=== PATIENT | female | born 1995 | race African-American/Black ===

== ENCOUNTER 2016-08-08 02:51 | Emergency (ER) | payer OTHER, MEDICAID ==
[~2016-08-08] VITALS: Ht 154.9 cm; Wt 60.9 kg
[~2016-08-08 02:51] MED LIST: HYDR5SYP10 PO
[2016-08-08 03:01] VITALS: BP 126/94; PULSE 100; RESP 14; TEMP 98.1; O2SAT 99
[2016-08-08 04:45] VITALS: BP 101/60; PULSE 73; RESP 16; O2SAT 99
[2016-08-08] MEDS ORDERED: SODIUM CHLOR 0.9% 1000 ML INJ 1,000 ML IV ONE (05:20)
--- NOTE | 2016-08-08 05:23 | PD ---
HPI Chief Complaint: Abdominal Pain Time Seen by Provider: 05:20 Travel History International Travel<30 days: No Contact w/Intl Traveler<30days: No Traveled to known affect area: No History of Present Illness HPI 21-year-old female presents to the emergency department for complaint of nausea vomiting and diarrhea since proxy 5 PM on the evening. Patient states symptoms began after eating all invalid solid and breadsticks. No other persons at 8 with her had this similar symptoms. No fever no chills no hematemesis no coffee -ground emesis no melena or hematochezia. Patient denies abdominal pain. Patient is presently menstruating and denies . Discomfort/pain is 0/ 10 intensity. PFSH Past Medical History Narrative Medical Ovarian cyst excision occasional alcohol use substance use nursing notes reviewed Medical History: Denies Significant Hx Diminished Hearing: No Immunizations Current: Yes Tetanus Vaccination: < 5 Years ?: Not LMP: Now : 0 Para: 0 Miscarriage: 0 : 0 Past Surgical History Gynecologic Surgery: Yes (OVARIAN CYST REMOVAL) Social History Alcohol Use: Yes (Socially ) Tobacco Use: No Substance Use: Yes (Marijuana ) Allergies-Medications (Allergen,Severity, Reaction): Coded Allergies: Medroxyprogesterone (Unverified Allergy, Mild, 08/08/16) Reported Meds & Prescriptions Reported Meds & Active Scripts Active Zofran Odt (Ondansetron Odt) 4 Mg Tab 4 Mg SL Q6HR PRN Review of Systems Except as stated in HPI: all other systems reviewed are Neg Physical Exam Narrative GENERAL: Well-developed well-nourished female in no acute distress no respiratory distress SKIN: Warm and dry. HEAD: Normocephalic. EYES: No scleral icterus. No injection or drainage. NECK: Supple, trachea midline. No JVD or lymphadenopathy. CARDIOVASCULAR: Regular rate and rhythm without murmurs, gallops, or rubs. RESPIRATORY: Breath sounds equal bilaterally. No accessory muscle use. GASTROINTESTINAL: Abdomen soft, non-tender, nondistended. MUSCULOSKELETAL: No cyanosis, or edema. BACK: Nontender without obvious deformity. No CVA tenderness. Data Data Last Documented VS Vital Signs Date Time Temp Pulse Resp B/P Pulse Ox O2 Delivery O2 Flow Rate FiO2 08/08/16 07:44 103 18 106/59 100 Room Air 08/08/16 03:01 98.1 Orders Complete Blood Count With Diff (08/08/16 05:20) Comprehensive Metabolic Panel (08/08/16 05:20) Urinalysis - C+S If Indicated (08/08/16 05:20) Lipase (08/08/16 05:20) Iv Access Insert/Monitor (08/08/16 05:20) Ecg Monitoring (08/08/16 05:20) Oximetry (08/08/16 05:20) Ondansetron Inj (Zofran Inj) (08/08/16 05:30) Sodium Chlor 0.9% 1000 Ml Inj (Ns 1000 M (08/08/16 05:20) Sodium Chloride 0.9% Flush (Ns Flush) (08/08/16 05:30) Ed Urine Pregnancytest Poc (08/08/16 05:20) Labs Laboratory Tests Test 08/08/16 08/08/16 05:30 07:09 White Blood Count 4.8 TH/MM3 Red Blood Count 4.41 MIL/MM3 Hemoglobin 12.4 GM/DL Hematocrit 37.1 % Mean Corpuscular Volume 84.2 FL Mean Corpuscular Hemoglobin 28.2 PG Mean Corpuscular Hemoglobin 33.5 % Concent Red Cell Distribution Width 13.4 % Platelet Count 244 TH/MM3 Mean Platelet Volume 7.3 FL Neutrophils (%) (Auto) 83.6 % Lymphocytes (%) (Auto) 8.1 % Monocytes (%) (Auto) 3.9 % Eosinophils (%) (Auto) 1.3 % Basophils (%) (Auto) 3.1 % Neutrophils # (Auto) 4.0 TH/MM3 Lymphocytes # (Auto) 0.4 TH/MM3 Monocytes # (Auto) 0.2 TH/MM3 Eosinophils # (Auto) 0.1 TH/MM3 Basophils # (Auto) 0.1 TH/MM3 CBC Comment DIFF FINAL Differential Comment Sodium Level 141 MEQ/L Potassium Level 3.8 MEQ/L Chloride Level 109 MEQ/L Carbon Dioxide Level 23.5 MEQ/L Anion Gap 9 MEQ/L Blood Urea Nitrogen 18 MG/DL Creatinine 0.78 MG/DL Estimat Glomerular Filtration 114 ML/MIN Rate Random Glucose 101 MG/DL Calcium Level 8.8 MG/DL Total Bilirubin 1.5 MG/DL Aspartate Amino Transf 82 U/L (AST/SGOT) Alanine Aminotransferase 122 U/L (ALT/SGPT) Alkaline Phosphatase 84 U/L Total Protein 7.8 GM/DL Albumin 3.7 GM/DL Lipase 183 U/L Urine Collection Type CLEAN CATCH Urine Color YELLOW Urine Turbidity SLIGHTY CLOUDY Urine pH 6.0 Urine Specific [place] 1.034 Urine Protein TRACE mg/dL Urine Glucose (UA) NEG mg/dL Urine Ketones 40 mg/dL Urine Occult Blood LARGE Urine Nitrite NEG Urine Bilirubin NEG Urine Leukocyte Esterase NEG Urine RBC 10-14 /hpf Urine WBC 0-2 /hpf Urine Squamous Epithelial 0-5 /hpf Cells Urine Amorphous Sediment FEW Urine Bacteria RARE /hpf Microscopic Urinalysis Comment CULT NOT INDICATED MDM Medical Decision Making Medical Screen Exam Complete: Yes Emergency Medical Condition: Yes Medical Record Reviewed: Yes Interpretation(s) poc hcg: negative Laboratory Tests Test 08/08/16 08/08/16 05:30 07:09 White Blood Count 4.8 TH/MM3 Red Blood Count 4.41 MIL/MM3 Hemoglobin 12.4 GM/DL Hematocrit 37.1 % Mean Corpuscular Volume 84.2 FL Mean Corpuscular Hemoglobin 28.2 PG Mean Corpuscular Hemoglobin 33.5 % Concent Red Cell Distribution Width 13.4 % Platelet Count 244 TH/MM3 Mean Platelet Volume 7.3 FL Neutrophils (%) (Auto) 83.6 % Lymphocytes (%) (Auto) 8.1 % Monocytes (%) (Auto) 3.9 % Eosinophils (%) (Auto) 1.3 % Basophils (%) (Auto) 3.1 % Neutrophils # (Auto) 4.0 TH/MM3 Lymphocytes # (Auto) 0.4 TH/MM3 Monocytes # (Auto) 0.2 TH/MM3 Eosinophils # (Auto) 0.1 TH/MM3 Basophils # (Auto) 0.1 TH/MM3 CBC Comment DIFF FINAL Differential Comment Sodium Level 141 MEQ/L Potassium Level 3.8 MEQ/L Chloride Level 109 MEQ/L Carbon Dioxide Level 23.5 MEQ/L Anion Gap 9 MEQ/L Blood Urea Nitrogen 18 MG/DL Creatinine 0.78 MG/DL Estimat Glomerular Filtration 114 ML/MIN Rate Random Glucose 101 MG/DL Calcium Level 8.8 MG/DL Total Bilirubin 1.5 MG/DL Aspartate Amino Transf 82 U/L (AST/SGOT) Alanine Aminotransferase 122 U/L (ALT/SGPT) Alkaline Phosphatase 84 U/L Total Protein 7.8 GM/DL Albumin 3.7 GM/DL Lipase 183 U/L Urine Collection Type CLEAN CATCH Urine Color YELLOW Urine Turbidity SLIGHTY CLOUDY Urine pH 6.0 Urine Specific [place] 1.034 Urine Protein TRACE mg/dL Urine Glucose (UA) NEG mg/dL Urine Ketones 40 mg/dL Urine Occult Blood LARGE Urine Nitrite NEG Urine Bilirubin NEG Urine Leukocyte Esterase NEG Urine RBC 10-14 /hpf Urine WBC 0-2 /hpf Urine Squamous Epithelial 0-5 /hpf Cells Urine Amorphous Sediment FEW Urine Bacteria RARE /hpf Microscopic Urinalysis Comment CULT NOT INDICATED Differential Diagnosis UTI, , dehydration, electrolyte disturbance Narrative Course IV access obtained specimens collected and sent for resulting Patient administered normal saline 1 L bolus along with Zofran 4 mg IV @7:05 AM patient feels clinically markedly improved now feels able to provide urine specimen no further nausea no vomiting and denies any diarrheal or crampy discomfort. Patient is up out of bed at this time ambulating to bathroom. At 7:50 AM patient is stable for outpatient management Diagnosis Primary Impression: Gastroenteritis Additional Impression: Transaminasemia Referrals: Primary Care Physician call for appointment Patient Instructions: General Instructions Departure Forms: Tests/Procedures, Work Release Special Instructions: No work times one day Additional Instructions: Follow clear liquid diet for next 12-24 hours advance as tolerated to bland/ Russ diet then regular diet avoiding fried and fatty foods Monitor temperature every 4 hours with thermometer take as needed Motrin/ ibuprofen/Advil every 6-8 hours as needed for fever 100.4F or greater or for pain associated with inflammation Do not take acetaminophen/Tylenol at this time due to mild elevation of liver enzymes Follow-up with primary care provider call office in a.m. to schedule follow-up appointment Return to the emergency department for any concerns or change in condition No work 1 day Med/Other Pt SpecificInfo: Prescription(s) given Scripts Ondansetron Odt (Zofran Odt)4 Mg Tab4 Mg SL Q6HR PRN (Nausea/Vomiting) #10 TAB Ref 0 Prov:Angeles Martino MD 08/08/16 Disposition: 01 DISCHARGE HOME Condition: Stable Angeles Martino MD Aug 08, 2016 05:23
[2016-08-08 05:30] VITALS: O2SAT 97
[2016-08-08] MEDS ORDERED: ONDANSETRON HCL 4 MG/2 ML VIAL IVP ONE (05:30)
[2016-08-08] MEDS ORDERED: SODIUM CHLORIDE 0.9% FLUSH 5 ML FLUSH IVF PRN (05:30)
[2016-08-08 05:45] VITALS: BP 101/70; PULSE 92; RESP 18; O2SAT 100
[2016-08-08 05:50] LABS: BASOPHIL # 0.1 TH/MM3 (0-0.2); BASOPHIL % 3.1 % (0.0-2.0); EOSINOPHIL # 0.1 TH/MM3 (0-0.4); EOSINOPHIL % 1.3 % (0.0-4.0); HEMATOCRIT 37.1 % (35.0-46.0); LYMPH % 8.1 % (9.0-44.0); LYMPHOCYTE # 0.4 TH/MM3 (1.0-4.8); MEAN CELL VOLUME 84.2 FL (80.0-100.0); MEAN CORPUSCULAR HEMOGLOBIN 28.2 PG (27.0-34.0); MEAN CORPUSCULAR HGB CONC 33.5 % (32.0-36.0); MONO % 3.9 % (0.0-8.0); NEUT % 83.6 % (16.0-70.0); PLATELET COUNT 244 TH/MM3 (150-450); RED BLOOD COUNT 4.41 MIL/MM3 (4.00-5.30); RED CELL DISTRIBUTION WIDTH 13.4 % (11.6-17.2); WHITE BLOOD COUNT 4.8 TH/MM3 (4.0-11.0)
[2016-08-08 05:54] LABS: HEMO FLAGS DIFF FINAL
[2016-08-08 06:10] LABS: CHLORIDE 109 MEQ/L (98-107); POTASSIUM 3.8 MEQ/L (3.5-5.1); SODIUM (NA) 141 MEQ/L (136-145)
[2016-08-08 06:15] LABS: ANION GAP 9 MEQ/L (5-15); BICARBONATE 23.5 MEQ/L (21.0-32.0); BLOOD UREA NITROGEN 18 MG/DL (7-18)
[2016-08-08 06:17] LABS: ALT (GPT) 122 U/L (9-42)
[2016-08-08 06:18] LABS: AST (GOT) 82 U/L (16-38); GLOMERULAR FILTRATION RATE 114 ML/MIN (>89)
[2016-08-08 06:19] LABS: TOTAL BILIRUBIN ADULT 1.5 MG/DL (0.2-1.0)
[2016-08-08 06:20] LABS: ALKALINE PHOSPHATASE 84 U/L (45-117)
[2016-08-08 07:13] LABS: BLOOD, URINE LARGE (NEG); GLUCOSE,URINE NEG (NEG); KETONE, URINE 40 mg/dL (NEG); NITRITE,URINE NEG (NEG)
[2016-08-08 07:17] LABS: METHOD OF COLLECTION CLEAN CATCH; URINE COLOR YELLOW (YELLW/STRAW)
[2016-08-08 07:19] LABS: BACTERIA, URINE RARE /hpf; WBC, URINE 0-2 /hpf (0-5)
[2016-08-08 07:20] LABS: COMMENT (UR) CULT NOT INDICATED; CULTURE IF INDICATED CULT NOT INDICATED; SQUAMOUS EPITHELIAL CELL URINE 0-5 /hpf (0-5)
[2016-08-08 07:44] VITALS: BP 106/59; PULSE 103; RESP 18; O2SAT 100
[2016-08-08] MEDS ORDERED: ZOFR4TAB3 SL (07:50)
== END 2016-08-08 08:08 | disposition home or self-care (01) ==
LOC: PHED 02:51
DX: K52.9 Noninfective gastroenteritis and colitis, unspecified (principal); R74.0 Nonspecific elevation of levels of transaminase and lactic acid dehydrogenase [LDH]
CPT/HCPCS: 80053; 81001; 83690; 84703; 85025; 96374; 99284; J2405; J7030

== ENCOUNTER 2016-11-29 18:12 | Emergency (ER) | payer OTHER, MEDICAID ==
[~2016-11-29] VITALS: Ht 154.9 cm; Wt 60.0 kg
[~2016-11-29 18:12] MED LIST changes: -HYDR5SYP10 PO; +ZOFR4TAB3 SL
[2016-11-29 18:14] VITALS: BP 117/78; PULSE 68; RESP 16; TEMP 99; O2SAT 99
[2016-11-29] MEDS ORDERED: cefTRIAXone 250 MG VIAL IM ONE (18:45)
[2016-11-29] MEDS ORDERED: LIDOCAINE HCL 1% 50 ML VIAL XX ONE (18:45)
[2016-11-29] MEDS ORDERED: ULTR50TA5 PO (18:47)
[2016-11-29] MEDS ORDERED: METR-1 PO (18:47)
[2016-11-29] MEDS ORDERED: DOXY100C PO (18:47)
[2016-11-29] MEDS ORDERED: IBUP800T23 PO (18:47)
--- NOTE | 2016-11-29 18:48 | PD ---
HPI . 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 Pain is exacerbated by sexual intercourse. She describes a constant , throbbing pain which she rates as 9 out of 10. PFSH Past Medical History Diminished Hearing: No Immunizations Current: Yes ?: Not : 0 Para: 0 Miscarriage: 0 : 0 Ovarian Cysts: Yes Past Surgical History Gynecologic Surgery: Yes (OVARIAN CYST REMOVAL) Social History Alcohol Use: Yes (Socially ) Tobacco Use: No Substance Use: Yes (Marijuana ) Allergies-Medications (Allergen,Severity, Reaction): Coded Allergies: Medroxyprogesterone (Unverified Allergy, Mild, 08/08/16) Reported Meds & Prescriptions Reported Meds & Active Scripts Active Zofran Odt (Ondansetron Odt) 4 Mg Tab 4 Mg SL Q6HR PRN Review of Systems Except as stated in HPI: all other systems reviewed are Neg General / Constitutional: No: Fever, Chills Genitourinary: Positive: Pelvic Pain, Dyspareunia, Discharge, No: Urgency, Frequency, Dysuria Physical Exam Narrative GENERAL: Awake and alert and in no acute distress. SKIN: Warm and dry. HEAD: Atraumatic. Normocephalic. EYES: Pupils equal and round. NECK: Trachea midline. CARDIOVASCULAR: Regular rate and rhythm. RESPIRATORY: No accessory muscle use. : Normal female external genitalia. Scant yellowish discharge in the vaginal vault. Cervical os is closed. Positive cervical motion tenderness and bilateral adnexal tenderness. No masses palpated. MUSCULOSKELETAL: No obvious deformities. No edema. NEUROLOGICAL: Awake and alert. No obvious cranial nerve deficits. Motor grossly within normal limits. Normal speech. PSYCHIATRIC: Appropriate mood and affect; insight and judgment normal. Data Data Last Documented VS Vital Signs Date Time Temp Pulse Resp B/P Pulse Ox O2 Delivery O2 Flow Rate FiO2 11/29/16 18:14 99.0 68 16 117/78 99 Room Air Orders Gc And Chlamydia Pcr (11/29/16 18:24) Wet Prep Profile (11/29/16 18:24) Urinalysis - C+S If Indicated (11/29/16 18:24) Ed Urine Pregnancytest Poc (11/29/16 18:24) [facility] Medical Decision Making Medical Screen Exam Complete: Yes Emergency Medical Condition: Yes Differential Diagnosis Differential diagnosis of pelvic pain includes but is not limited to UTI, PID, ectopic , spontaneous AB, constipation, viral illness Narrative Course Patient presents with pelvic pain associated with vaginal discharge and dyspareunia. Her exam is compatible with PID. Her test is negative. Diagnosis Primary Impression: Pelvic inflammatory disease Patient Instructions: General Instructions, Pelvic Inflammatory Disease (DC) Med/Other Pt SpecificInfo: Prescription(s) given Scripts Tramadol (Ultram)50 Mg Tab50 Mg PO Q4H PRN (PAIN) #12 TAB Ref 0 Prov:Winnie David MD 11/29/16 Ibuprofen 800 Mg [id number] Mg PO Q8H PRN (Pain/Inflammation) #60 TAB Ref 0 Prov:Winnie David MD 11/29/16 Metronidazole (Flagyl)500 Mg [id number] Mg PO twice a day 7 Days Ref 0 Prov:Winnie David MD 11/29/16 Doxycycline Hyclate 100 Mg Cin104 Mg PO BID #20 CAP Ref 0 Prov:Winnie David MD 11/29/16 Disposition: 01 DISCHARGE HOME Condition: Stable Winnie David MD November 29, 2016 18:47
[2016-11-29 18:57] LABS: BLOOD, URINE NEG (NEG); COMMENT (UR) CULT NOT INDICATED; CULTURE IF INDICATED CULT NOT INDICATED; GLUCOSE,URINE NEG (NEG); KETONE, URINE NEG (NEG); MUCUS URINE FEW /lpf (OCC); NITRITE,URINE NEG (NEG); PH, URINE 6.5 (5.0-8.5); SQUAMOUS EPITHELIAL CELL URINE 3 /hpf (0-5); URINE COLOR YELLOW (YELLW/STRAW)
[2016-11-29 21:46] LABS: CHLAMYDIA PCR NOT DETECTED (NOT DETECT); NEISSERIA PCR NOT DETECTED (NOT DETECT)
== END 2016-11-29 19:45 | disposition home or self-care (01) ==
LOC: NEPD 18:12
DX: N73.9 Female pelvic inflammatory disease, unspecified (principal)
CPT/HCPCS: 81001; 84703; 87210; 87491; 87591; 96372; 99283; J0696

== ENCOUNTER 2017-01-10 00:25 | Emergency (ER) | payer OTHER, MEDICAID ==
[~2017-01-10 00:25] MED LIST changes: +DOXY100C PO; +IBUP800T23 PO; +METR-1 PO; +ULTR50TA5 PO
[2017-01-10 00:27] VITALS: BP 117/77; PULSE 78; RESP 16; TEMP 98.5; O2SAT 100
[2017-01-10] MEDS ORDERED: SODIUM CHLOR 0.9% 1000 ML INJ 1,000 ML IV SCH (00:46)
[2017-01-10 00:48] VITALS: O2SAT 98
--- NOTE | 2017-01-10 00:55 | PD ---
HPI Chief Complaint: GI Complaint Time Seen by Provider: 00:45 Travel History International Travel<30 days: No Contact w/Intl Traveler<30days: No Traveled to known affect area: No History of Present Illness HPI onset of n/v/d about 5 days, (pshx includes ovarian cyst removal......pmhx- neg....lmp 2.5weeks ago....) c/o diffuse abd cramps, 12/23, nonrad, PFSH Past Medical History Diminished Hearing: No Immunizations Current: Yes Tetanus Vaccination: Unknown Influenza Vaccination: No ?: Unknown LMP: 12/18/2016 : 0 Para: 0 Miscarriage: 0 : 0 Ovarian Cysts: Yes Past Surgical History Gynecologic Surgery: Yes (OVARIAN CYST REMOVAL) Social History Alcohol Use: Yes (Socially ) Tobacco Use: No Substance Use: Yes (Marijuana ) Allergies-Medications (Allergen,Severity, Reaction): Coded Allergies: Medroxyprogesterone (Verified Allergy, Mild, 01/10/17) Reported Meds & Prescriptions Reported Meds & Active Scripts Active Zofran Odt (Ondansetron Odt) 4 Mg Tab 4 Mg SL Q6HR PRN Codeine-Acetaminophen 30-300 mg Tab 1 Tab PO Q4H PRN Review of Systems Except as stated in HPI: all other systems reviewed are Neg Gastrointestinal: Positive: Nausea, Vomiting, Diarrhea, Abdominal Pain Physical Exam Narrative GENERAL: SKIN: Warm and dry. HEAD: Atraumatic. Normocephalic. EYES: Pupils equal and round. No scleral icterus. No injection or drainage. ENT: No nasal bleeding or discharge. Mucous membranes pink and moist. NECK: Trachea midline. No JVD. CARDIOVASCULAR: Regular rate and rhythm. RESPIRATORY: No accessory muscle use. Clear to auscultation. Breath sounds equal bilaterally. GASTROINTESTINAL: Abdomen soft, non-tender, nondistended. hyperactive bowel sounds. MUSCULOSKELETAL: Extremities without clubbing, cyanosis, or edema. No obvious deformities. NEUROLOGICAL: Awake and alert. No obvious cranial nerve deficits. Motor grossly within normal limits. Five out of 5 muscle strength in the arms and legs. Normal speech. PSYCHIATRIC: Appropriate mood and affect; insight and judgment normal. Data Data Last Documented VS Orders Complete Blood Count With Diff (01/10/17 00:46) Comprehensive Metabolic Panel (01/10/17 00:46) Lipase (01/10/17 00:46) Urinalysis - C+S If Indicated (01/10/17 00:46) Iv Access Insert/Monitor (01/10/17 00:46) Ecg Monitoring (01/10/17 00:46) Oximetry (01/10/17 00:46) NPO (01/10/17 00:46) Ondansetron Inj (Zofran Inj) (01/10/17 01:00) Sodium Chlor 0.9% 1000 Ml Inj (Ns 1000 M (01/10/17 00:46) Sodium Chloride 0.9% Flush (Ns Flush) (01/10/17 01:00) Ed Urine Pregnancytest Poc (01/10/17 00:46) Morphine Inj (Morphine Inj) (01/10/17 01:45) Labs MDM Medical Decision Making Medical Screen Exam Complete: Yes Emergency Medical Condition: Yes Differential Diagnosis VIRAL V BACTERIAL ENTERITIS V ELECTROLYTE ABNL, V PANCREATITIS V RELATED Narrative Course PT FOUND TO HAVE NEG , NL LIPASE AND ELECTROLYTE PANEL. NO LEFT SHIFT FOUND ON CBC, AND PT N/V RESOLVED AND ABLE TO TOLERATE PO. WILL D/C Diagnosis Primary Impression: Viral gastroenteritis Patient Instructions: Gastroenteritis (ED), General Instructions Scripts Ondansetron Odt (Zofran Odt)4 Mg Tab4 Mg SL Q6HR PRN (Nausea/Vomiting) #12 TAB Prov:Tam Valenzuela MD 01/10/17 Codeine-Acetaminophen 30-300 mg Tab1 Tab PO Q4H PRN (PAIN) #12 TAB Prov:Tam Valenzuela MD 01/10/17 Disposition: 01 DISCHARGE HOME Condition: Stable Tam Valenzuela MD Jan 10, 2017 00:55 Urine Glucose (UA) NEG mg/dL Urine Ketones NEG mg/dL Urine Occult Blood NEG Urine Nitrite NEG Urine Bilirubin NEG Urine Urobilinogen LESS THAN 2.0 MG/DL Urine Leukocyte Esterase NEG Urine RBC LESS THAN 1 /hpf Urine WBC LESS THAN 1 /hpf Urine Squamous Epithelial 5 /hpf Cells Urine Hyaline Casts 1 /lpf Urine Mucus FEW /lpf Microscopic Urinalysis Comment CULT NOT INDICATED White Blood Count 4.6 TH/MM3 Red Blood Count 4.48 MIL/MM3 Hemoglobin 13.0 GM/DL Hematocrit 37.3 % Mean Corpuscular Volume 83.3 FL Mean Corpuscular Hemoglobin 29.0 PG Mean Corpuscular Hemoglobin 34.8 % Concent Red Cell Distribution Width 13.0 % Platelet Count 246 TH/MM3 Mean Platelet Volume 7.6 FL Neutrophils (%) (Auto) 62.4 % Lymphocytes (%) (Auto) 28.1 % Monocytes (%) (Auto) 6.9 % Eosinophils (%) (Auto) 2.0 % Basophils (%) (Auto) 0.6 % Neutrophils # (Auto) 2.9 TH/MM3 Lymphocytes # (Auto) 1.3 TH/MM3 Monocytes # (Auto) 0.3 TH/MM3 Eosinophils # (Auto) 0.1 TH/MM3 Basophils # (Auto) 0.0 TH/MM3 CBC Comment DIFF FINAL Differential Comment Sodium Level 139 MEQ/L Potassium Level 3.7 MEQ/L Chloride Level 104 MEQ/L Carbon Dioxide Level 27.6 MEQ/L Anion Gap 7 MEQ/L Blood Urea Nitrogen 11 MG/DL Creatinine 0.82 MG/DL Estimat Glomerular Filtration 108 ML/MIN Rate Random Glucose 81 MG/DL Calcium Level 9.2 MG/DL Total Bilirubin 1.0 MG/DL Aspartate Amino Transf 33 U/L (AST/SGOT) Alanine Aminotransferase 48 U/L (ALT/SGPT) Alkaline Phosphatase 81 U/L Total Protein 8.4 GM/DL Albumin 4.1 GM/DL Lipase 248 U/L [facility] Medical Decision Making Medical Screen Exam Complete: Yes Emergency Medical Condition: Yes Differential Diagnosis VIRAL V BACTERIAL ENTERITIS V ELECTROLYTE ABNL, V PANCREATITIS V RELATED Diagnosis Primary Impression: Viral gastroenteritis Patient Instructions: Gastroenteritis (ED), General Instructions Scripts Ondansetron Odt (Zofran Odt)4 Mg Tab4 Mg SL Q6HR PRN (Nausea/Vomiting) #12 TAB Prov:Tam Valenzuela MD 01/10/17 Codeine-Acetaminophen 30-300 mg Tab1 Tab PO Q4H PRN (PAIN) #12 TAB Prov:Tam Valenzuela MD 01/10/17 Disposition: 01 DISCHARGE HOME Condition: Stable Tam Valenzuela MD Jan 10, 2017 00:55
[2017-01-10] MEDS ORDERED: ONDANSETRON HCL 4 MG/2 ML VIAL IVP ONE (01:00)
[2017-01-10] MEDS ORDERED: SODIUM CHLORIDE 0.9% FLUSH 10 ML FLUSH IV FLUSH PRN (01:00)
[2017-01-10 01:08] LABS: BLOOD, URINE NEG (NEG); COMMENT (UR) CULT NOT INDICATED; CULTURE IF INDICATED CULT NOT INDICATED; GLUCOSE,URINE NEG (NEG); HYALINE CAST, URINE 1 /lpf (RARE); KETONE, URINE NEG (NEG); MUCUS URINE FEW /lpf (OCC); NITRITE,URINE NEG (NEG); PH, URINE 5.5 (5.0-8.5); SQUAMOUS EPITHELIAL CELL URINE 5 /hpf (0-5); URINE COLOR YELLOW (YELLW/STRAW)
[2017-01-10 01:12] LABS: AUTOMATED NEUTROPHIL # 2.9 TH/MM3 (1.8-7.7); BASOPHIL % 0.6 % (0.0-2.0); EOSINOPHIL # 0.1 TH/MM3 (0-0.4); HEMATOCRIT 37.3 % (35.0-46.0); HEMO FLAGS DIFF FINAL; LYMPH % 28.1 % (9.0-44.0); LYMPHOCYTE # 1.3 TH/MM3 (1.0-4.8); MEAN CELL VOLUME 83.3 FL (80.0-100.0); MEAN CORPUSCULAR HGB CONC 34.8 % (32.0-36.0); MONO % 6.9 % (0.0-8.0); NEUT % 62.4 % (16.0-70.0); PLATELET COUNT 246 TH/MM3 (150-450); RED BLOOD COUNT 4.48 MIL/MM3 (4.00-5.30); WHITE BLOOD COUNT 4.6 TH/MM3 (4.0-11.0)
[2017-01-10 01:36] LABS: ALT (GPT) 48 U/L (9-42); ANION GAP 7 MEQ/L (5-15); AST (GOT) 33 U/L (16-38); BICARBONATE 27.6 MEQ/L (21.0-32.0); BLOOD UREA NITROGEN 11 MG/DL (7-18); CHLORIDE 104 MEQ/L (98-107); GLOMERULAR FILTRATION RATE 108 ML/MIN (>89); POTASSIUM 3.7 MEQ/L (3.5-5.1); SODIUM (NA) 139 MEQ/L (136-145)
[2017-01-10 01:39] LABS: ALKALINE PHOSPHATASE 81 U/L (45-117)
[2017-01-10] MEDS ORDERED: MORPHINE SULFATE 4 MG/ML INJ IV PUSH ONE (01:45)
[2017-01-10] MEDS ORDERED: CODE30TA2 PO (01:59)
[2017-01-10] MEDS ORDERED: ZOFR4TAB3 SL (01:59)
== END 2017-01-10 02:38 | disposition home or self-care (01) ==
LOC: NEPC 00:25
DX: A08.4 Viral intestinal infection, unspecified (principal); F12.90 Cannabis use, unspecified, uncomplicated
CPT/HCPCS: 80053; 81001; 83690; 84703; 85025; 96361; 96374; 99284; J2405; J7030

== ENCOUNTER 2017-06-19 14:09 | Emergency (ER) | payer MEDICAID, OTHER ==
[~2017-06-19] VITALS: Ht 154.9 cm; Wt 63.6 kg
[~2017-06-19 14:09] MED LIST changes: +CODE30TA2 PO; -DOXY100C PO; -IBUP800T23 PO; -METR-1 PO; -ULTR50TA5 PO
[2017-06-19 14:10] VITALS: BP 101/57; PULSE 77; RESP 16; TEMP 99; O2SAT 100
--- NOTE | 2017-06-19 14:48 | PD ---
HPI Chief Complaint: GI Complaint Time Seen by Provider: 14:48 Travel History International Travel<30 days: No Contact w/Intl Traveler<30days: No Traveled to known affect area: No History of Present Illness HPI 22-year-old Afro-[place]azi female presents the emergency department with generalized malaise, fatigue, nausea, and diarrhea 2 days ago for the past 2 weeks. Patient states her last menstrual period was June 02. Patient denies urinary pain or frequency. Patient denies headache, upper respiratory symptoms, fever, but has had chills. Patient currently is not on control. Patient denies specific pain. She is allergic to medroxyprogesterone. PFSH Past Medical History Diminished Hearing: No Immunizations Current: Yes : 0 Para: 0 Miscarriage: 0 : 0 Ovarian Cysts: Yes Past Surgical History Gynecologic Surgery: Yes (OVARIAN CYST REMOVAL) Social History Alcohol Use: Yes (Socially ) Tobacco Use: No Substance Use: Yes (Marijuana ) Allergies-Medications (Allergen,Severity, Reaction): Coded Allergies: medroxyprogesterone (Unverified Allergy, Mild, 02/27/17) Reported Meds & Prescriptions Reported Meds & Active Scripts Active No Active Prescriptions or Reported Medications Review of Systems Except as stated in HPI: all other systems reviewed are Neg General / Constitutional: No: Fever Eyes: No: Visual changes HENT: No: Headaches Cardiovascular: No: Chest Pain or Discomfort Respiratory: No: Shortness of Breath Gastrointestinal: Positive: Nausea, Diarrhea, Loss of Appetite (2 days ago now resolved.), No: Vomiting, Abdominal Pain, Indigestion, Dysphagia Genitourinary: No: Dysuria Musculoskeletal: No: Pain Skin: No Rash Neurologic: No: Weakness Psychiatric: No: Depression Endocrine: Positive: Other (generalized fatigue and increased somnolence.), No : Polydipsia Hematologic/Lymphatic: No: Easy Bruising Physical Exam Narrative GENERAL: Patient appears in no acute distress. SKIN: Warm and dry. Normal color. Normal turgor. HEAD: Atraumatic. Normocephalic. EYES: Pupils equal and round. No scleral icterus. No injection or drainage. ENT: No nasal bleeding or discharge. Mucous membranes pink and moist. Pharynx is clear. Airway is patent. NECK: Trachea midline. Supple and nontender without palpable thyroid. CARDIOVASCULAR: Regular rate and rhythm. No murmurs gallops or rubs. RESPIRATORY: No accessory muscle use. Clear to auscultation. Breath sounds equal bilaterally. GASTROINTESTINAL: Abdomen soft, non-tender, nondistended. Hepatic and splenic margins not palpable. No CVA tenderness. MUSCULOSKELETAL: Extremities without clubbing, cyanosis, or edema. No obvious deformities. NEUROLOGICAL: Awake and alert. No obvious cranial nerve deficits. Motor grossly within normal limits. Five out of 5 muscle strength in the arms and legs. Normal speech. PSYCHIATRIC: Appropriate mood and affect; insight and judgment normal. Data Data Last Documented VS Vital Signs Date Time Temp Pulse Resp B/P (MAP) Pulse Ox O2 Delivery O2 Flow Rate FiO2 06/19/17 14:10 99.0 77 16 101/57 (72) 100 Room Air Orders Orders Complete Blood Count With Diff (06/19/17 14:13) Urinalysis - C+S If Indicated (06/19/17 14:13) Ed Urine Pregnancytest Poc (06/19/17 14:13) Basic Metabolic Panel (Bmp) (06/19/17 14:13) Monoscreen (06/19/17 15:08) Labs Laboratory Tests Test 06/19/17 14:31 06/19/17 15:34 White Blood Count 3.1 TH/MM3 Red Blood Count 4.29 MIL/MM3 Hemoglobin 12.6 GM/DL Hematocrit 35.6 % Mean Corpuscular Volume 83.0 FL Mean Corpuscular Hemoglobin 29.4 PG Mean Corpuscular Hemoglobin Concent 35.5 % Red Cell Distribution Width 14.7 % Platelet Count 237 TH/MM3 Mean Platelet Volume 8.0 FL Neutrophils (%) (Auto) 39.3 % Lymphocytes (%) (Auto) 45.6 % Monocytes (%) (Auto) 9.7 % Eosinophils (%) (Auto) 4.7 % Basophils (%) (Auto) 0.7 % Neutrophils # (Auto) 1.2 TH/MM3 Lymphocytes # (Auto) 1.4 TH/MM3 Monocytes # (Auto) 0.3 TH/MM3 Eosinophils # (Auto) 0.1 TH/MM3 Basophils # (Auto) 0.0 TH/MM3 CBC Comment DIFF FINAL Differential Comment Urine Color YELLOW Urine Turbidity CLEAR Urine pH 5.5 Urine Specific [place] 1.024 Urine Protein NEG mg/dL Urine Glucose (UA) NEG mg/dL Urine Ketones NEG mg/dL Urine Occult Blood NEG Urine Nitrite NEG Urine Bilirubin NEG Urine Urobilinogen LESS THAN 2.0 MG/DL Urine Leukocyte Esterase NEG Urine WBC 1 /hpf Urine Squamous Epithelial Cells 9 /hpf Urine Bacteria RARE /hpf Urine Mucus FEW /lpf Microscopic Urinalysis Comment CULT NOT INDICATED Blood Urea Nitrogen 12 MG/DL Creatinine 0.77 MG/DL Random Glucose 93 MG/DL Calcium Level 8.9 MG/DL Sodium Level 137 MEQ/L Potassium Level 3.8 MEQ/L Chloride Level 106 MEQ/L Carbon Dioxide Level 24.5 MEQ/L Anion Gap 7 MEQ/L Estimat Glomerular Filtration Rate 115 ML/MIN Monoscreen NEG MDM Medical Decision Making Medical Screen Exam Complete: Yes Emergency Medical Condition: Yes Differential Diagnosis Viral illness. . Fatigue. Malaise. Nausea. Narrative Course Patient appears medically stable. Labs ordered in triage including BMP, CBC, urinalysis, and urine .\ CBC shows leukocytosis of 3.1 with 45.6% lymphs, 9.7 monos and 4.7 eos. Neutrophils were low at 1.2. Monospot was added to her labs. Chemistry was unremarkable. Urine shows no significant findings. Urine is negative. [place] was negative. Patient's symptoms and lab work are reviewed with Dr. Rhoades. Patient is felt to be recovering from a viral illness. Patient is to continue to rest and push fluids and follow-up with her primary care physician as discussed. Can return if symptoms worsen as needed. Diagnosis Primary Impression: Nonspecific syndrome suggestive of viral illness Additional Impression: Fatigue Qualified Codes: R53.83 - Other fatigue Referrals: Primary Care Physician Patient Instructions: Fatigue (ED), General Instructions Additional Instructions: CBC shows leukocytosis of 3.1 with 45.6% lymphs, 9.7 monos and 4.7 eos. Neutrophils were low at 1.2. Monospot was added to her labs. Chemistry was unremarkable. Urine shows no significant findings. Urine is negative. [place] was negative. Patient's symptoms and lab work are reviewed with Dr. Rhoades. Patient is felt to be recovering from a viral illness. Patient is to continue to rest and push fluids and follow-up with her primary care physician as discussed. Can return if symptoms worsen as needed. Med/Other Pt SpecificInfo: No Meds Exist/No RX given Scripts No Active Prescriptions or Reported Meds Disposition: 01 DISCHARGE HOME Condition: Stable Aron Mcclellan Jun 19, 2017 14:48
[2017-06-19 15:05] LABS: AUTOMATED NEUTROPHIL # 1.2 TH/MM3 (1.8-7.7); BASOPHIL % 0.7 % (0.0-2.0); EOSINOPHIL # 0.1 TH/MM3 (0-0.4); EOSINOPHIL % 4.7 % (0.0-4.0); HEMATOCRIT 35.6 % (35.0-46.0); HEMO FLAGS DIFF FINAL; LYMPH % 45.6 % (9.0-44.0); LYMPHOCYTE # 1.4 TH/MM3 (1.0-4.8); MEAN CORPUSCULAR HEMOGLOBIN 29.4 PG (27.0-34.0); MEAN CORPUSCULAR HGB CONC 35.5 % (32.0-36.0); MONO % 9.7 % (0.0-8.0); NEUT % 39.3 % (16.0-70.0); PLATELET COUNT 237 TH/MM3 (150-450); RED BLOOD COUNT 4.29 MIL/MM3 (4.00-5.30); RED CELL DISTRIBUTION WIDTH 14.7 % (11.6-17.2); WHITE BLOOD COUNT 3.1 TH/MM3 (4.0-11.0)
[2017-06-19 15:20] LABS: BICARBONATE 24.5 MEQ/L (21.0-32.0); POTASSIUM 3.8 MEQ/L (3.5-5.1)
[2017-06-19 15:54] LABS: BACTERIA, URINE RARE /hpf; BLOOD, URINE NEG (NEG); COMMENT (UR) CULT NOT INDICATED; CULTURE IF INDICATED CULT NOT INDICATED; GLUCOSE,URINE NEG (NEG); KETONE, URINE NEG (NEG); MUCUS URINE FEW /lpf (OCC); NITRITE,URINE NEG (NEG); PH, URINE 5.5 (5.0-8.5); SQUAMOUS EPITHELIAL CELL URINE 9 /hpf (0-5); URINE COLOR YELLOW (YELLW/STRAW)
[2017-06-19 16:17] VITALS: BP 118/88
== END 2017-06-19 16:30 | disposition home or self-care (01) ==
LOC: NEPD 14:09
DX: R53.83 Other fatigue (principal); R53.81 Other malaise; R11.0 Nausea; R19.7 Diarrhea, unspecified
CPT/HCPCS: 80048; 81001; 84703; 85025; 86308; 99283

== ENCOUNTER 2017-07-01 | Emergency (ER) | payer SELFPAY ==
[~2017-07-01] VITALS: Ht 154.9 cm; Wt 63.6 kg
[2017-07-01 00:02] VITALS: BP 114/73; PULSE 74; RESP 16; TEMP 99.2; O2SAT 100
--- NOTE | 2017-07-01 00:15 | PD ---
HPI Chief Complaint: Abdominal Pain Time Seen by Provider: 00:14 Travel History International Travel<30 days: No Contact w/Intl Traveler<30days: No Traveled to known affect area: No History of Present Illness HPI 22-year-old female came to the emergency room with history of sharp pain in her pelvic area in the midline region for past day or 2. Patient found out 4-5 days ago that she is . She was here a week ago when her test was negative. However patient continued to feel lethargic and tired and did not get her period that she was due for and hence [facility] test was done which was positive. They prescribed her pills which she has been taking. But because of the pain and today woke up in the middle of the night with sharp pain she decided to come to the emergency room. There is no spotting or bleeding. Patient is A0. She does not have an OB yet. PFSH Past Medical History Narrative Medical List of her past medical, surgical, social and family history is reviewed from the nurse's note. Medical History: Denies Significant Hx Diminished Hearing: No Immunizations Current: Yes Tetanus Vaccination: < 5 Years ?: : 0 Para: 0 Miscarriage: 0 : 0 Ovarian Cysts: Yes Past Surgical History Gynecologic Surgery: Yes (OVARIAN CYST REMOVAL) Social History Alcohol Use: No Tobacco Use: No Substance Use: Yes (Marijuana ) Allergies-Medications (Allergen,Severity, Reaction): Coded Allergies: medroxyprogesterone (Unverified Allergy, Mild, 07/01/17) Comments List of her allergies reviewed from the nursing note. Reported Meds & Prescriptions Reported Meds & Active Scripts Active Macrobid (Nitrofurantoin Monohydrate Macrocrystals) 100 Mg Capsule 100 Mg PO BID 7 Days Narrative Medication List of her home medications reviewed from the nursing note. Review of Systems Except as stated in HPI: all other systems reviewed are Neg Genitourinary: Positive: Pelvic Pain Physical Exam Narrative GENERAL: Awake, alert, no obvious distress SKIN: Focused skin assessment warm/dry. HEAD: Atraumatic. Normocephalic. EYES: Pupils equal and round. No scleral icterus. No injection or drainage. ENT: No nasal bleeding or discharge. Mucous membranes pink and moist. NECK: Trachea midline. No JVD. CARDIOVASCULAR: Regular rate and rhythm. No murmur appreciated. RESPIRATORY: No accessory muscle use. Clear to auscultation. Breath sounds equal bilaterally. GASTROINTESTINAL: Abdomen soft, non-tender, nondistended. Hepatic and splenic margins not palpable. MUSCULOSKELETAL: No obvious deformities. No clubbing. No cyanosis. No edema. NEUROLOGICAL: Awake and alert. No obvious cranial nerve deficits. Motor grossly within normal limits. Normal speech. PSYCHIATRIC: Appropriate mood and affect; insight and judgment normal. Data Data Last Documented VS Vital Signs Date Time Temp Pulse Resp B/P (MAP) Pulse Ox O2 Delivery O2 Flow Rate FiO2 07/01/17 00:02 99.2 74 16 114/73 (87) 100 Room Air Orders Orders Urinalysis - C+S If Indicated (07/01/17 00:19) Ed Urine Pregnancytest Poc (07/01/17 00:19) Ed Discharge Order (07/01/17 01:28) Labs Laboratory Tests Test 07/01/17 00:25 Urine Color YELLOW Urine Turbidity CLEAR Urine pH 6.5 Urine Specific [place] 1.030 Urine Protein TRACE mg/dL Urine Glucose (UA) NEG mg/dL Urine Ketones NEG mg/dL Urine Occult Blood NEG Urine Nitrite NEG Urine Bilirubin NEG Urine Urobilinogen 2.0 MG/DL Urine Leukocyte Esterase NEG Urine RBC LESS THAN 1 /hpf Urine WBC 1 /hpf Urine Squamous Epithelial Cells 5 /hpf Urine Bacteria RARE /hpf Urine Mucus FEW /lpf Microscopic Urinalysis Comment CULT NOT INDICATED MDM Medical Decision Making Medical Screen Exam Complete: Yes Emergency Medical Condition: Yes Medical Record Reviewed: Yes Differential Diagnosis UTI, first trimester , growing uterine pain in Narrative Course 12:37 AM bedside urine test was positive here. I have tried to reassure the patient that given the fact that this is her first this discomfort may seem abnormal to her but is normal for most women. This is probably because her uterus is rapidly growing at this point. A UA has been ordered which is pending. I have recommended that she should try to find an OB for herself next week as soon as possible. I am not sure how short the patient feels but if the UA is negative she will be discharged home. I recommended that if she starts having spotting she should return to the ER in which case ectopic would be a consideration. Procedures EKG Prior to Arrival: No Diagnosis Primary Impression: Early stage of Additional Impression: Pelvic pain during Additional Instructions: Please find an OB for yourselves for this . Continue taking the pills daily. Return to the ER if you start having spotting or heavy vaginal bleeding. You can take Tylenol during the for severe pain which is safe. Scripts Nitrofurantoin Monohydrate Macrocrystals (Macrobid) 100 Mg Capsule 100 MG PO BID for Infection for 7 Days, #14 CAP 0 Refills Prov: Laura Friedman MD 07/01/17 Disposition: 01 DISCHARGE HOME Condition: Stable Laura Friedman MD Jul 01, 2017 00:15
[2017-07-01 01:01] LABS: BACTERIA, URINE RARE /hpf; BILIRUBIN, URINE NEG (NEG); BLOOD, URINE NEG (NEG); GLUCOSE,URINE NEG (NEG); KETONE, URINE NEG (NEG); MUCUS URINE FEW /lpf (OCC); NITRITE,URINE NEG (NEG); PH, URINE 6.5 (5.0-8.5); SQUAMOUS EPITHELIAL CELL URINE 5 /hpf (0-5); URINE COLOR YELLOW (YELLW/STRAW); URINE LEUKOCYTE ESTERASE NEG (NEG)
[2017-07-01] MEDS ORDERED: MACR100C2 PO (01:26)
--- NOTE | 2017-07-01 01:28 | PD ---
Physical Exam Time Seen by Provider: 01:27 Data Data Last Documented VS Vital Signs Date Time Temp Pulse Resp B/P (MAP) Pulse Ox O2 Delivery O2 Flow Rate FiO2 07/01/17 00:02 99.2 74 16 114/73 (87) 100 Room Air Orders Orders Urinalysis - C+S If Indicated (07/01/17 00:19) Ed Urine Pregnancytest Poc (07/01/17 00:19) Labs Laboratory Tests Test 07/01/17 00:25 Urine Color YELLOW Urine Turbidity CLEAR Urine pH 6.5 Urine Specific [place] 1.030 Urine Protein TRACE mg/dL Urine Glucose (UA) NEG mg/dL Urine Ketones NEG mg/dL Urine Occult Blood NEG Urine Nitrite NEG Urine Bilirubin NEG Urine Urobilinogen 2.0 MG/DL Urine Leukocyte Esterase NEG Urine RBC LESS THAN 1 /hpf Urine WBC 1 /hpf Urine Squamous Epithelial Cells 5 /hpf Urine Bacteria RARE /hpf Urine Mucus FEW /lpf Microscopic Urinalysis Comment CULT NOT INDICATED MDM Medical Record Reviewed: Yes Supervised Visit with MALINDA: No Narrative Course See Dr. Friedman's note for complete history of present illness. I am following up on the urinalysis results. Urinalysis reveals rare bacteria. Given her , she will be treated for asymptomatic bacteriuria with Diagnosis Primary Impression: Early stage of Additional Impressions: Pelvic pain during Asymptomatic bacteriuria during Additional Instruction: Please find an OB for yourselves for this . Continue taking the pills daily. Return to the ER if you start having spotting or heavy vaginal bleeding. You can take Tylenol during the for severe pain which is safe. Med/Other Pt SpecificInfo: Prescription(s) given Scripts Nitrofurantoin Monohydrate Macrocrystals (Macrobid) 100 Mg Capsule 100 MG PO BID for Infection for 7 Days, #14 CAP 0 Refills Prov: Laura Friedamn MD 07/01/17 Disposition: 01 DISCHARGE HOME Condition: Stable Maynor Garcia Jul 01, 2017 01:28
== END 2017-07-01 02:03 | disposition home or self-care (01) ==
LOC: NEPD
DX: O26.891 Other specified pregnancy related conditions, first trimester (principal); R10.2 Pelvic and perineal pain; R53.83 Other fatigue; Z88.8 Allergy status to other drugs, medicaments and biological substances
CPT/HCPCS: 81001; 84703; 99283

== ENCOUNTER 2017-08-01 23:44 | Emergency (ER) | payer OTHER | END 2017-08-02 00:33 | disposition home or self-care (01) | LOC: NEPD 23:44 | DX: O22.41 Hemorrhoids in pregnancy, first trimester (principal); Z3A.09 9 weeks gestation of pregnancy | CPT/HCPCS: 99282 ==

== ENCOUNTER 2017-08-12 01:03 | Emergency (ER) | payer OTHER ==
[~2017-08-12] VITALS: Ht 154.9 cm; Wt 61.5 kg
[~2017-08-12 01:03] MED LIST changes: -CODE30TA2 PO; +PREN29TA PO; -ZOFR4TAB3 SL
[2017-08-12 01:05] VITALS: BP 112/73; PULSE 87; RESP 16; TEMP 98.5; O2SAT 99
--- NOTE | 2017-08-12 02:12 | PD ---
HPI Chief Complaint: Cold / Flu Symptoms Time Seen by Provider: 01:56 Travel History International Travel<30 days: No Contact w/Intl Traveler<30days: No Traveled to known affect area: No History of Present Illness HPI 22-year-old 1 para 0 with approximately 11 week presents emergency Department with what the patient states is "I think I have the flu". Patient states that she's been sick now for the past 3 days. She has had subjective fever and chills, runny nose, sore throat, headache, cough, shortness of breath, posttussive emesis, myalgias, arthralgias and general malaise. Positive morning sickness. She denies any abdominal pain. No leakage of fluid or vaginal bleeding. No dysuria or frequency. Symptoms are moderate. No coughing. No alleviating factors. PFSH Past Medical History Narrative Medical Ovarian cysts Diminished Hearing: No Reproductive: Yes (OVARIAN CYST) Immunizations Current: Yes Tetanus Vaccination: Unknown ?: : 1 Para: 0 Miscarriage: 0 : 0 Ovarian Cysts: Yes Past Surgical History Narrative Surgical Laparoscopy Gynecologic Surgery: Yes (OVARIAN CYST REMOVAL) Social History Alcohol Use: No Tobacco Use: No Substance Use: No Allergies-Medications (Allergen,Severity, Reaction): Coded Allergies: medroxyprogesterone (Unverified Allergy, Mild, 08/02/17) Reported Meds & Prescriptions Reported Meds & Active Scripts Active Vitamin B-6 (Pyridoxine HCl) 50 Mg Tab 50 Mg PO Q6HR PRN Tamiflu (Oseltamivir Phosphate) 75 Mg Cap 75 Mg PO BID 5 Days Reported Plus Iron 29-1 mg ( Vit-Iron Carbonyl) 29 Mg Iron-1 Mg Tab 1 Tab PO DAILY Review of Systems Except as stated in HPI: all other systems reviewed are Neg Physical Exam Narrative GENERAL: Well-developed, well-nourished in no apparent distress. Nontoxic appearing. HEAD: Normocephalic, atraumatic. EYES: Pupils equal round and reactive. Extraocular motions intact. No scleral icterus. No injection or drainage. ENT: Nose clear. Throat without erythema, tonsillar hypertrophy or exudate. Uvula midline. Airway patent. NECK: Trachea midline. Supple, nontender, moves head freely. No central bony tenderness or spasm. CARDIOVASCULAR: Regular rate and rhythm without murmurs, gallops, or rubs. RESPIRATORY: Clear to auscultation. Breath sounds equal bilaterally. No wheezes , rales, or rhonchi. GASTROINTESTINAL: Abdomen soft, non-tender, nondistended. No hepato-splenomegaly , or palpable masses. No guarding. EXTREMITIES: No clubbing, cyanosis, or edema. No joint tenderness. BACK: Nontender without deformity. No flank tenderness. NEUROLOGICAL: Awake, alert and oriented x 3 .Cranial nerves grossly intact. Motor and sensory grossly within normal limits. Normal speech. Data Data Last Documented VS Vital Signs Date Time Temp Pulse Resp B/P (MAP) Pulse Ox O2 Delivery O2 Flow Rate FiO2 08/12/17 02:42 99 21 08/12/17 01:05 98.5 87 16 112/73 (86) Room Air Orders Orders Influenzae A/B Antigen (08/12/17 01:58) Diphenhydramine Inj (Benadryl Inj) (08/12/17 02:15) Albuterol Neb (Albuterol Neb) (08/12/17 02:15) Oseltamivir (Tamiflu) (08/12/17 03:00) Ed Discharge Order (08/12/17 02:57) MDM Medical Decision Making Medical Screen Exam Complete: Yes Emergency Medical Condition: Yes Medical Record Reviewed: Yes Interpretation(s) Influenza: Positive for influenza B Differential Diagnosis MDM: High Differential diagnoses: Pneumonia, bronchitis, URI, asthma, RAD, influenza Narrative Course Influenza swab sent. Patient's given Benadryl 50 mg IM and albuterol nebulizer treatment. The patient is feeling much better. She is taking by mouth without vomiting. Patient is given Tamiflu 75 mg by mouth. This is influenza B, Diagnosis Primary Impression: Influenza B Additional Impression: Patient Instructions: General Instructions Departure Forms: Tests/Procedures, Work Release Special Instructions: No work 5 days. Additional Instructions: Rest. Increase fluids. Tamiflu. Vitamin B 6 for nausea and vomiting. Follow-up with your OB doctor in the next week. Return to the ER for problems. Med/Other Pt SpecificInfo: Prescription(s) given Scripts Pyridoxine (Vitamin B-6) 50 Mg Tab 50 MG PO Q6HR Y for NAUSEA, #30 TAB 0 Refills Prov: Filipe Carlson MD 08/12/17 Oseltamivir (Tamiflu) 75 Mg Cap 75 MG PO BID for Mgmt Viral Infection for 5 Days, #10 CAP 0 Refills Prov: Filipe Carlson MD 08/12/17 Disposition: 01 DISCHARGE HOME Condition: Stable Adam Xie Aug 12, 2017 02:12
[2017-08-12] MEDS ORDERED: RESP: ALBUTEROL 2.5 MG/3 ML NEB (SCH) INH ONE (02:15)
[2017-08-12] MEDS ORDERED: diphenhydrAMINE HCL 50 MG/ML VIAL IM ONE (02:15)
[2017-08-12 02:42] VITALS: O2SAT 99
[2017-08-12] MEDS ORDERED: OSEL75 PO (02:57)
[2017-08-12] MEDS ORDERED: VITA50TA30 PO (02:59)
[2017-08-12] MEDS ORDERED: OSELTAMIVIR PHOSPHATE 75 MG CAP PO ONE (03:00)
== END 2017-08-12 03:52 | disposition home or self-care (01) ==
LOC: NEPD 01:03
DX: O26.891 Other specified pregnancy related conditions, first trimester (principal); J11.1 Influenza due to unidentified influenza virus with other respiratory manifestations; Z3A.11 11 weeks gestation of pregnancy; Z88.8 Allergy status to other drugs, medicaments and biological substances
CPT/HCPCS: 87804; 94664; 96372; 99284; J1200; J7613

== ENCOUNTER 2017-08-14 18:22 | Emergency (ER) | payer OTHER ==
[~2017-08-14] VITALS: Ht 154.9 cm; Wt 61.4 kg
[~2017-08-14 18:22] MED LIST changes: +OSEL75 PO; +VITA50TA30 PO
[2017-08-14 18:23] VITALS: BP 125/77; PULSE 114; RESP 16; TEMP 98.6; O2SAT 98
[2017-08-14 19:04] LABS: BACTERIA, URINE RARE /hpf; BILIRUBIN, URINE NEG (NEG); BLOOD, URINE NEG (NEG); GLUCOSE,URINE NEG (NEG); KETONE, URINE 40 mg/dL (NEG); MUCUS URINE FEW /lpf (OCC); NITRITE,URINE NEG (NEG); SQUAMOUS EPITHELIAL CELL URINE 18 /hpf (0-5); URINE COLOR YELLOW (YELLW/STRAW); URINE LEUKOCYTE ESTERASE NEG (NEG)
--- NOTE | 2017-08-14 21:08 | PD ---
Physical Exam Date Seen by Provider: Aug 14, 2017 Time Seen by Provider: 21:05 Narrative 22 year old female presents to the emergency department for evaluation of vomiting. She is 11 weeks . She states she was diagnosed with the flu 2 days ago. She also reports some pelvic pain. Data Data Last Documented VS Vital Signs Date Time Temp Pulse Resp B/P (MAP) Pulse Ox O2 Delivery O2 Flow Rate FiO2 08/14/17 18:23 98.6 114 16 125/77 (93) 98 Orders Orders Beta Hcg (Quant/Titer) (08/14/17 18:39) Complete Blood Count With Diff (08/14/17 18:39) Comprehensive Metabolic Panel (08/14/17 18:39) Urinalysis - C+S If Indicated (08/14/17 18:39) Labs Laboratory Tests Test 08/14/17 18:45 Urine Color YELLOW Urine Turbidity HAZY Urine pH 7.0 Urine Specific [place] 1.030 Urine Protein 30 mg/dL Urine Glucose (UA) NEG mg/dL Urine Ketones 40 mg/dL Urine Occult Blood NEG Urine Nitrite NEG Urine Bilirubin NEG Urine Urobilinogen 2.0 MG/DL Urine Leukocyte Esterase NEG Urine RBC LESS THAN 1 /hpf Urine WBC 6 /hpf Urine Squamous Epithelial Cells 18 /hpf Urine Bacteria RARE /hpf Urine Mucus FEW /lpf Microscopic Urinalysis Comment CULT NOT INDICATED MDM Supervised Visit with MALINDA: No Narrative Course 22 year old female presents to the emergency department for evaluation of vomiting, pelvic pain during . Patient is initially seen and work up is initiated in triage. Patient left AMA before she could be moved to a medical bed. Diagnosis Primary Impression: Left against medical advice Disposition: 07 AGAINST MEDICAL ADVICE Blanca Shoemaker Aug 14, 2017 21:08
== END 2017-08-14 20:40 | disposition left against medical advice (07) ==
LOC: NED 18:22
DX: O21.9 Vomiting of pregnancy, unspecified (principal); Z3A.11 11 weeks gestation of pregnancy
CPT/HCPCS: 81001; 99283

== ENCOUNTER 2017-10-04 13:12 | Emergency (ER) | payer MEDICAID, OTHER ==
[~2017-10-04] VITALS: Ht 154.9 cm; Wt 62.6 kg
--- NOTE | 2017-10-04 14:28 | PD ---
HPI Chief Complaint Abdominal pain Date Seen: Oct 04, 2017 Time Seen: 14:00 Travel History International Travel<30 Days: No Contact w/Intl Traveler<30Days: No History of Present Illness HPI Ms. Arnett is a 22-year-old at 18/4 weeks gestation presenting to the ED with complaints of abdominal pain. She states that this pain started 3 days ago. She describes them as a 7/10 shooting pain in her lower abdomen bilaterally. She also feels a shooting pain on her left side. No recent trauma. Worse with laying down and sitting. Not worse with walking. No vaginal bleeding, no contractions, no dysuria, no chest pain, shortness of breath, no bilateral calf pain. Is feeling baby move. Also complains of vaginal discharge that she describes as white and liquidy. She also states it is malodorous, smells like fish. No itching or burning. She denies history of STDs. Last had sex 4-5 days ago. Did not use condoms. 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 Denies alcohol, tobacco, or illicit drug use Alcohol Use: No Tobacco Use: No Substance Abuse: No Allergies-Medications (Allergen,Severity, Reaction): Coded Allergies: medroxyprogesterone (Unverified Allergy, Mild, 08/02/17) Home Meds Active Scripts Metronidazole (Metronidazole) 500 Mg Tab, 500 MG PO BID for Infection for 7 Days , #14 TAB 0 Refills Prov:Dacia Griffith MD R1 10/04/17 Pyridoxine (Vitamin B-6) 50 Mg Tab, 50 MG PO Q6HR Y for NAUSEA, #30 TAB 0 Refills Prov:Filipe Carlson MD 08/12/17 Reported Medications Vit-Iron Carbonyl ( Plus Iron 29-1 mg) 29 Mg Iron-1 Mg Tab, 1 TAB PO DAILY for Nutritional Supplement, #30 TAB 0 Refills 08/02/17 Discontinued Scripts Oseltamivir (Tamiflu) 75 Mg Cap, 75 MG PO BID for Mgmt Viral Infection for 5 Days, #10 CAP 0 Refills Prov:Filipe Carlson MD 08/12/17 Review of Systems General / Constitutional: No: Fever, Chills Eyes: No: Blurred Vision HENT: No: Headaches Cardiovascular: No: Chest Pain or Discomfort Respiratory: No: Short of Breath Gastrointestinal: No: Nausea, Vomiting Genitourinary: No: Dysuria Musculoskeletal: No: Weakness Skin: No Rash Physical Exam Narrative GENERAL: Well-nourished, well-developed patient. SKIN: Warm and dry. HEAD: Normocephalic and atraumatic. EYES: No scleral icterus. No injection or drainage. ENT: No nasal drainage noted. Mucous membranes pink. Airway patent. NECK: Supple, trachea midline. No JVD. CARDIOVASCULAR: Regular rate and rhythm without murmurs, gallops, or rubs. RESPIRATORY: Breath sounds equal bilaterally. No accessory muscle use. BREASTS: Bilateral exam showed no masses , no retractions, no nipple discharge. ABDOMEN/GI: Abdomen soft, tender in bilateral lower quadrants, bowel sounds present, no rebound, no guarding Gravid to 18 weeks size GENITOURINARY: External Genitalia: intact and normal in appearance External inspection and and swab of the vagina shows whitish thin malodorous discharge FHT's: Baseline: 150s EXTREMITIES: No cyanosis or edema. BACK: Nontender without obvious deformity. No CVA tenderness. NEUROLOGICAL: Awake and alert. Motor and sensory grossly within normal limits. Five out of 5 muscle strength in all muscle groups. Normal speech. Data Data Vital Signs Reviewed: Yes Orders Orders Vital Signs (Adult) .ON ADMISSION (10/04/17 13:59) ^ Labor Status (10/04/17 13:59) ^ Non Stress Test (10/04/17 13:59) ^ Hydration (10/04/17 13:59) MDM Plan 22-year-old at 18/4 weeks gestation presenting with abdominal pain and vaginal discharge. Upon chart review, patient has a history of cervicitis and PID. Due to patient' s recent unprotected sexual intercourse will conduct a wet prep and urine GC and chlamydia. Inspection of the discharge provisional exam likely points to BV , but will be cautious due to patient's history. Dopplers show heart rate in the 150s Tocometer shows no contractions -UA- negative -Wet prep- negative -Urine GC and chlamydia Diagnosis Diagnosis: Primary Impression: Bacterial vaginosis Disposition: 01 DISCHARGE HOME Condition: Stable Scripts Metronidazole (Metronidazole) 500 Mg Tab 500 MG PO BID for Infection for 7 Days, #14 TAB 0 Refills Prov: Dacia Griffith MD R1 10/04/17 Dacia Griffith MD R1 Oct 04, 2017 14:28
[2017-10-04 15:41] LABS: BILIRUBIN, URINE NEG (NEG); BLOOD, URINE NEG (NEG); GLUCOSE,URINE NEG (NEG); KETONE, URINE NEG (NEG); MUCUS URINE FEW /lpf (OCC); NITRITE,URINE NEG (NEG); SQUAMOUS EPITHELIAL CELL URINE 12 /hpf (0-5); URINE COLOR YELLOW (YELLW/STRAW); URINE LEUKOCYTE ESTERASE TRACE (NEG)
[2017-10-04] MEDS ORDERED: METR1TAB76 PO (15:52)
== END 2017-10-04 16:40 | disposition home or self-care (01) ==
LOC: HOBED 13:12
DX: O23.592 Infection of other part of genital tract in pregnancy, second trimester (principal); N76.0 Acute vaginitis; B96.89 Other specified bacterial agents as the cause of diseases classified elsewhere; Z3A.18 18 weeks gestation of pregnancy
CPT/HCPCS: 81001; 87210; 87491; 87591; 99283